=== PATIENT | female | born 1960 | race Caucasian/White ===

== ENCOUNTER 2016-11-18 08:28 | Day surgery (SDC) | payer BC ==
[~2016-11-18 08:28] MED LIST: ACETAMINOPHEN 1000MG/100 ML PREMIX IV ONE
[2016-11-18] MEDS ORDERED: BUPIVACAINE 0.25% W/EPI MPF 30ML VIAL IVP ONE (15:04)
[2016-11-18] MEDS ORDERED: HYDROMORPHONE HCL 2 MG/ML VIAL IV ONE (15:04)
[2016-11-18] MEDS ORDERED: HYDROCODONE/APAP 7.5/325MG TABLET PO ONE (15:04)
[2016-11-18] MEDS ORDERED: FENTANYL PF 100MCG/2ML VIAL IV ONE (15:10)
[2016-11-18] MEDS ORDERED: LIDOCAINE 2% MDV (20MG/ML) 20ML VIAL IV ONE (15:10)
[2016-11-18] MEDS ORDERED: ONDANSETRON HCL IV 4 MG/2 ML VIAL IVP ONE (15:10)
[2016-11-18] MEDS ORDERED: METOCLOPRAMIDE HCL 10 MG/2 ML VIAL IVP ONE (15:10)
[2016-11-18] MEDS ORDERED: KETOROLAC 30 MG/ML VIAL IVP ONE (15:10)
[2016-11-18] MEDS ORDERED: PROPOFOL 10 MG/ML VIAL IV ONE (15:10)
--- NOTE | 2016-11-19 17:06 | Operative Note ---
DATE OF SURGERY: 11/18/2016 REFERRING PHYSICIAN: Vj Arnold M.D. PREOPERATIVE DIAGNOSIS: Torn medial meniscus of the right knee. POSTOPERATIVE DIAGNOSES: 1. Torn medial meniscus, right knee. 2. Synovitis, right knee (2 compartments). OPERATIVE PROCEDURES: 1. Arthroscopic partial medial meniscectomy, right knee. 2. Arthroscopic partial synovectomy, right knee (2 compartments). Surgeon: Kendrick Montejo D.O. DESCRIPTION: This 56-year-old female was taken to the Operating Room and placed in the supine position on the operating room table. A general anesthetic was administered and the right lower extremity was elevated, it was exsanguinated and the tourniquet inflated to 300 mmHg. Arthroscopic knee murrell applied. Right knee prepped with Hibiclens and draped in the usual sterile fashion. An inferolateral portal was established with a 4 mm arthroscope and initial evaluation of the joint demonstrated normal appearance of the suprapatellar pouch. The patient did have some synovitis in the anteromedial aspect of the patellofemoral joint and partial synovectomy was performed. The articular cartilage however was probed through an inferomedial portal and found to be stable. The medial compartment was entered and minimal stuffing of the medial femoral condyle was present but the meniscus demonstrated a tear which extended through the superior and inferior surface at different locations but was an unstable tear and a partial medial meniscectomy was performed. We resected back to the apex of the tear leaving approximately a 4 to 5 mm rim. This was smoothed, trimmed and balanced removing unstable fragments of the meniscus. It was then reprobed and confirmed to be stable. The articular cartilage was also probed and found to be normal. The anteromedial and anterolateral compartments demonstrated synovitis and partial synovectomy was performed. The intercondylar notch was examined and found to be normal. The lateral compartment was entered. Probing of the articular cartilage and meniscus on the lateral side did not reveal any evidence of pathology other than the synovitis but no articular cartilage or meniscal lesions were identified. The joint was copiously irrigated with lactated Ringer solution. All areas reexamined. The joint was suctioned, the instruments were removed. The portals infiltrated with 0.25% Marcaine with epinephrine. Sterile dressings applied, tourniquet and knee murrell released, and the patient taken to the Recovery Room in satisfactory condition. GROSS PATHOLOGY: This patient demonstrated significant synovitis in the anterior, medial and lateral compartments as well as some at the patellofemoral joint. In addition, a tear of the meniscal was present as described. CC: Hay Valentino
== END 2016-11-18 11:50 | disposition home or self-care (01) ==
LOC: SUR 08:28
PROVIDERS: ATTEND Orthopaedic Surgery
DX: M23.203 Derangement of unspecified medial meniscus due to old tear or injury, right knee (principal); M65.861 Other synovitis and tenosynovitis, right lower leg; E11.9 Type 2 diabetes mellitus without complications; Z79.84 Long term (current) use of oral hypoglycemic drugs
CPT/HCPCS: 29875; 29881; 01400; J1885; J2405; J3010; J1170; J2765